=== PATIENT | male | born 1965 | race Caucasian/White ===

== ENCOUNTER 2016-07-22 20:09 | Emergency (ER) | payer OTHER ==
[2016-07-22 21:59] LABS: BASOPHILS 0.5 % (0.0-2.0); EOSINOPHILS 3.8 % (0-7); HEMATOCRIT 50.1 % (42.0-54.0); HEMOGLOBIN 16.7 g/dL (13.5-17.5); IMMATURE GRANULOCYTES 1.1 % (0-5); LYMPHOCYTES 38.6 % (15-50); MCH 31.4 pg (26.0-34.0); MCHC 33.3 g/dL (31.0-37.0); MCV 94.2 fL (80.0-100.0); PLATELET COUNT 199 10x3/uL (130-400); RBC 5.32 10x6/uL (4.20-6.10); RDW 13.8 % (11.5-14.5); WBC 12.2 10x3/uL (4.8-10.8)
[2016-07-22 22:16] LABS: ALBUMIN 3.8 g/dL (3.4-5.0); ALKALINE PHOSPHATASE 66 U/L (46-116); ALT (SGPT) 62 U/L (10-68); CALC OSMOLALITY 271 mosm/kg (275-300); CARBON DIOXIDE 27.7 mmol/L (21.0-32.0); CHLORIDE - SERUM 101 mmol/L (98-107); CREATININE - SERUM 1.2 mg/dL (0.6-1.3); GLUCOSE 92 mg/dL (74-106); POTASSIUM - SERUM 3.9 mmol/L (3.5-5.1); PROTEIN - SERUM 7.5 g/dL (6.4-8.2); SODIUM 137 mmol/L (136-145); UREA NITROGEN 7 mg/dL (7-18); eGFR NON AFRICAN AMERICAN 68 mL/min (90-120)
[2016-07-22 22:23] LABS: AMYLASE - SERUM 38 U/L (25-115); LIPASE 133 U/L (73-393); PRO BNP 84 pg/mL (0-125); TROPONIN-I < 0.017 ng/mL (0.000-0.060)
== END 2016-07-23 00:15 | disposition home or self-care (01) ==
LOC: D.ER 20:09
PROVIDERS: Family Medicine
DX: I87.2 Venous insufficiency (chronic) (peripheral) (principal); E03.9 Hypothyroidism, unspecified; I45.4 Nonspecific intraventricular block